=== PATIENT | male | born 1980 | race Caucasian/White ===

== ENCOUNTER 2024-09-19 13:00 | Outpatient (CLI) | payer OTHER, SELFPAY ==
[2024-09-19 17:31] LABS: Basophils % 0.7 % (0.1-2.0); Eosinophils # 0.1 K/mm3 (0.0-0.4); Hematocrit 48.4 % (42.0-52.0); Hemoglobin 17.1 g/dL (14.1-18.0); Lymphocytes # 1.9 K/mm3 (0.7-4.5); Lymphocytes % 35.1 % (10-50); Mean Corpuscular HGB Conc 35.3 g/dL (31.8-35.4); Mean Corpuscular Hemoglobin 31.8 pg (27.0-31.2); Mean Corpuscular Volume 90.1 fl (80-94); Mean Platelet Volume 7.5 fl (7.4-10.4); Monocytes # 0.5 K/mm3 (0.1-1.0); Monocytes % 8.3 % (1.7-9.3); Neutrophils % 54.9 % (37.0-80.0); Platelet Count 198 K/mm3 (142-424); Red Blood Count 5.37 M/mm3 (4.60-6.20); White Blood Count 5.4 K/mm3 (4.8-10.8)
[2024-09-19 18:19] LABS: Albumin/Globulin Ratio 1.6 (1.1-1.8); Globulin 3.1 g/dL (1.3-3.2)
[2024-09-19 18:28] LABS: HIV (1&2) Antibody Rapid NONREACTIVE (NONREACTIVE)
[2024-09-19 18:34] LABS: 25-OH Vitamin D, Total 34.5 ng/mL (30-100)
[2024-09-19 18:50] LABS: Hemoglobin A1C 5.5 % (4.0-6.0)
[2024-09-19 18:53] LABS: Free T4 (Free Thyroxine) 0.68 ng/dl (0.78-2.19)
[2024-09-19 19:23] LABS: Chloride 102 mmol/L (98-107); Potassium 3.8 mmoL/L (3.5-5.1); Sodium 140 mmol/L (136-145)
[2024-09-19 19:26] LABS: Alanine Aminotransferase 14 U/L (12-78); Alkaline Phosphatase 54 U/L (38-126); Anion Gap 16.8 mEq/L (5-15); Aspartate Amino Transferase 22 U/L (17-59); Bilirubin,Total 0.9 mg/dl (0.2-1.3); Blood Urea Nitrogen 13 mg/dl (9-20); Calcium 9.7 mg/dl (8.4-10.2); Carbon Dioxide 25 mmol/L (22.0-30.0); Cholesterol 211 mg/dl (140-200); Estimated Glomerular Filt Rate 81 ml/min (>60); GFR (African American) 98 ML/MIN (>60); Glucose 122 mg/dl (74-100); Iron 116 ug/dL (49-181); Total Protein,Serum 8.1 g/dl (6.3-8.2); Triglycerides 261 mg/dl (30-150); VLDL Cholesterol 52 mg/dL (0-40)
[2024-09-19 19:27] LABS: HDL Cholesterol 35 mg/dl (40-60)
[2024-09-19 19:34] LABS: Vitamin B12 643 pg/mL (239-931)
[2024-09-19 20:54] LABS: Total Iron Binding Capacity 393 ug/dL (261-462)
[2024-09-19 21:46] LABS: Thyroid Stimulating Hormone 2.35 uIU/mL (0.465-4.68)
[2024-09-19 21:47] LABS: Ferritin 25.4 ng/ml (17.9-464)
[2024-09-20 09:22] LABS: HCV Ab Non Reactive (Non Reactive)
[2024-11-07 16:32] LABS: Microscopic, Urine URINE MICROSCOPIC (MICROSCOPIC)
[2024-11-07 17:20] LABS: Appearance,Urine CLEAR (Clear); Bilirubin,Urine Negative (Negative); Blood, Urine Negative (Negative); Color,Urine YELLOW (Yellow); Glucose,Urine (UA) Negative (Negative); Ketones,Urine Negative (Negative); Leukocyte Esterase,Urine Negative (Negative); Nitrate,Urine Negative (Negative); Protein,Urine Negative (Negative); Specific Gravity, Urine 1.025 (1.005-1.030)
[2024-11-07 18:33] LABS: Bacteria,Urine 2+ /lpf; Squamous Epithelial Cell,Urine Occasional #/hpf (0-5); WBC,Urine Occasional #/hpf (0-3)
[2024-11-07 18:34] LABS: Sperm,Urine 1+ /lpf
== END 2024-09-19 23:59 | disposition home or self-care (01) ==
LOC: LAB.DROPOF 09-20 09:07
PROVIDERS: PCP Nurse Practitioner Family; Visit Provider Nurse Practitioner Family
DX: R53.83 Other fatigue (principal); E53.8 Deficiency of other specified B group vitamins; Z13.1 Encounter for screening for diabetes mellitus; Z11.59 Encounter for screening for other viral diseases; E55.9 Vitamin D deficiency, unspecified; Z11.4 Encounter for screening for human immunodeficiency virus [HIV]; Z13.220 Encounter for screening for lipoid disorders
CPT/HCPCS: 80050; 80053; 80061; 81001; 82306; 82607; 82728; 83036; 83540; 83550; 84439; 84443; 85025; 86803; 87086; 87389